=== PATIENT | male | born 1960 | race Caucasian/White ===

== ENCOUNTER → 2016-10-29 | Outpatient (REF) | payer BC ==
[2016-10-29 12:45] LABS: PERCENT SATURATION 39.5 % (19.7-37.4)
== END ==
LOC: M LAB REF 11:49
PROVIDERS: ATTEND Internal Medicine
DX: E83.110 Hereditary hemochromatosis (principal)

== ENCOUNTER → 2017-11-10 | Outpatient (REF) | payer BC ==
[2017-11-10 12:54] LABS: FERRITIN 337 NG/ML (26-388); IRON (FE) 157 UG/DL (65-175); PERCENT SATURATION 58.6 % (19.7-50.0); TOTAL IRON BINDING CAPACITY 268 UG/DL (250-450)
== END ==
LOC: M LAB REF 12:11
DX: E83.110 Hereditary hemochromatosis (principal)